=== PATIENT | female | born 1985 | race Caucasian/White ===

== ENCOUNTER 2022-01-13 14:11 | Emergency (ER) | payer BC, SELFPAY | END 2022-01-13 15:07 | disposition left against medical advice (07) | LOC: ED 15:05 | PROVIDERS: Emergency Provider Family Medicine; PCP Family Medicine | DX: Z53.21 Procedure and treatment not carried out due to patient leaving prior to being seen by health care provider (principal) ==

== ENCOUNTER 2022-01-19 13:42 | Emergency (ER) | payer BC, SELFPAY ==
[2022-01-19 13:50] VITALS: BP 122/76; PULSE 93; RESP 20; TEMP 36.5; O2SAT 97; BMI 26.2
--- NOTE | 2022-01-19 14:02 | CRLHL7_ITS ---
For Patients: As a result of the Cures Act, medical imaging exams and procedure reports are released immediately into your electronic medical record. You may view this report before your referring provider. If you have questions, please contact your health care provider. HISTORY: Pain after injury. COMPARISON: None available. FINDINGS: The left foot is examined with AP, lateral, and oblique views. There is no sign of fracture or dislocation. The soft tissues are normal in appearance without sign of radio-opaque foreign body. There is minimal hallux valgus angulation. There are mild hammertoe deformities of the 2nd through 4th toes. No degenerative changes are seen. IMPRESSION: No sign of acute osseous injury. Minor degenerative changes as described above. Dictated by Dion Jules MD @ 01/19/2022 3:02:16 PM (Electronically Signed)
--- NOTE | 2022-01-19 14:03 | ED.GENADULT ---
HPI - General Adult General Date Seen: 01/19/22 Chief complaint: Extremity Pain/Injury, Lower Stated complaint: Foot Injury Time Seen by Provider: 01/19/22 13:45 Source: patient History of Present Illness HPI narrative: Patient is a 36-year-old woman who was switched bring a little bit ago, she said she had just finished, was sitting on the bed, and slipped, spraining her foot in the process. Her foot just tucked underneath her and hyper plantar flexed. She has pain across the top of her foot near the MTP joints and then also across the top of her foot along the 1st metatarsal. She has been walking on it, putting most for weight on the heel. She tried to put her work shoes on and said she could not put her shoe on so she wanted to get it checked to make sure she had not broken anything. She has noted a little bruising, no significant swelling. Pain is moderate, worse when she tries to bear weight. She has not taken anything for pain. Pain does not radiate. No numbness or loss of function. Related Data Home Medications Medication Instructions Recorded Confirmed aripiprazole 30 mg tablet 30 mg PO DAILY 01/19/22 01/19/22 clonazepam 1 mg tablet 1 mg PO DAILY PRN 01/19/22 01/19/22 dextroamphetamine-amphetamine 20 20 mg PO DAILY 01/19/22 01/19/22 mg tablet dextroamphetamine-amphetamine 20 20 mg PO DAILY 01/19/22 01/19/22 mg tablet dextroamphetamine-amphetamine ER 20 mg PO DAILY 01/19/22 01/19/22 10 mg 24hr capsule,extend release doxazosin 1 mg tablet mg PO PRN 01/19/22 lurasidone 40 mg tablet (Latuda) 40 mg PO DAILY 01/19/22 01/19/22 olanzapine 2.5 mg tablet 0.5 mg PO PRN 01/19/22 01/19/22 trazodone 50 mg tablet 50 mg PO DAILY PRN 01/19/22 01/19/22 venlafaxine 150 mg 150 mg PO DAILY 01/19/22 01/19/22 capsule,extended release 24 hr venlafaxine 37.5 mg 37.5 mg PO DAILY 01/19/22 01/19/22 capsule,extended release 24 hr Previous Rx's Medication Instructions Recorded venlafaxine 75 mg capsule,extended 75 mg PO BID #60 cap 12/28/21 release 24 hr Allergies Allergy/AdvReac Type Severity Reaction Status Date / Time No Known Drug Allergies Allergy Verified 01/19/22 13:59 Review of Systems Status of ROS: Reports: 6 or more systems reviewed and unremarkable except as noted in History and below [facility] Social History Smoking Status: Current every day smoker What tobacco products do you use: cigarettes Smoking packs per day: 1 Smoking cigarettes per day: 20.0 Do you use any of these nicotine containing products: Vaping Products Second hand tobacco smoke exposure: Yes How often do you have a drink containing alcohol: never How often do you have six or more drinks on one occasion: Never AUDIT-C Alcohol total score: 0 Non-prescribed substance use: marijuana (any form) service: No Exam Narrative: Exam Narrative: Vital signs reviewed In general, alert, nontoxic woman. Extremities: Examination of the left foot shows some bruising by the MTP joints. No significant swelling. Tenderness in this area. She has some tenderness diffusely across the top of her foot. Dorsalis pedis pulse is intact. No tenderness of the ankle or Achilles. No tenderness of the base of the 5th metatarsal. Distal CMS is normal. Skin: Warm dry well perfused. Neurologic: Alert, conversant. Moves all extremities. Const: Vital Signs, click to edit/add: Vital Signs - 24 hr 01/19/22 13:50 Temperature 97.7 F Pulse Rate [Left P ulse Oximeter] 93 Respiratory Rate 20 Blood Pressure [Ri ght Upper Arm] 122/76 Pulse Oximetry 97 Documenting provider has reviewed patient's vital signs: yes Course Course Hospital Course: X-rays of the left foot by my review are negative. Final radiology report is likewise negative. Discussed that this will likely heal with conservative measures, ice, NSAIDs, elevation. 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 If she is not improving over the next 1-2 weeks would recommend follow up with primary care. Vital Signs Vital signs: Initial Vital Signs Temperature 97.7 F 01/19/22 13:50 Temperature Source Temporal Artery Scan 01/19/22 13:50 Pulse Rate 93 01/19/22 13:50 Respiratory Rate 20 01/19/22 13:50 Blood Pressure 122/76 01/19/22 13:50 Blood Pressure Mean 91 01/19/22 13:50 Blood Pressure Position Sitting 01/19/22 13:50 Pulse Oximetry 97 01/19/22 13:50 Oxygen Delivery Method 01/19/22 13:50 Vital Signs Temperature 97.7 F 01/19/22 13:50 Pulse Rate 93 01/19/22 13:50 Respiratory Rate 20 01/19/22 13:50 Blood Pressure 122/76 01/19/22 13:50 Pulse Oximetry 97 01/19/22 13:50 Temperature 97.7 F 01/19/22 13:50 Pulse Rate 93 01/19/22 13:50 Respiratory Rate 20 01/19/22 13:50 Blood Pressure 122/76 01/19/22 13:50 Pulse Oximetry 97 01/19/22 13:50 Discharge Plan Discharge Clinical Impression: Sprain of foot, left Patient Disposition: Home, Self-Care Condition: Stable Instructions: Foot Sprain (ED) Additional Instructions: Ibuprofen or Tylenol as needed. Ice, elevate as able. Postop shoe until pain is improved. Symptoms will likely improve with these conservative measures over the next couple of weeks, if not, follow up with her primary doctor. Prescriptions: No Action Latuda 40 mg tablet 40 mg PO DAILY 0RF Rx Instructions: must administer with food (at least 350 calories) clonazepam 1 mg tablet 1 mg PO DAILY PRN0RF Label Comments: TAKE 1 & 1/2 TABLET BY MOUTH ONCE A DAY NEEDED dextroamphetamine-amphetamine 20 mg tablet 20 mg PO DAILY 0RF dextroamphetamine-amphetamine 20 mg tablet 20 mg PO DAILY 0RF Label Comments: TAKE 1 TABLET BY MOUTH EVERY DAY aripiprazole 30 mg tablet 30 mg PO DAILY 0RF Label Comments: TAKE 1 TABLET BY MOUTH EVERY DAY dextroamphetamine-amphetamine 10 mg capsule,extended release 24hr 20 mg PO DAILY 0RF Label Comments: TAKE 1 CAPSULE BY MOUTH EVERY DAY doxazosin 1 mg tablet PO PRN 0RF Label Comments: TAKE 1/2 TABLET BY MOUTH EVERY DAY AT BEDTIME olanzapine 2.5 mg tablet 0.5 mg PO PRN 0RF Label Comments: TAKE 1 TABLET BY MOUTH ONCE A DAY NEEDED FOR SEVERE AGITATION/ANXIETY. trazodone 50 mg tablet 50 mg PO DAILY PRN0RF Label Comments: TAKE 1/2 TABLET BY MOUTH EVERY DAY AT BEDTIME venlafaxine 150 mg capsule,extended release 24hr 150 mg PO DAILY 0RF Label Comments: TAKE 1 CAPSULE BY MOUTH ONCE A DAY IN ADDITION TO 37.5 MG FOR A TOTAL DAILY DOSE OF 187.5 MG venlafaxine 37.5 mg capsule,extended release 24hr 37.5 mg PO DAILY 0RF Label Comments: TAKE 1 CAPSULE BY MOUTH ONCE A DAY IN ADDITION TO 150 MG DOSE FOR A TOTAL DAILY DOSE OF 187.5 MG. venlafaxine 75 mg capsule,extended release 24hr 75 mg PO BID Qty: 60 0RF Rx Instructions: Medication: Venlafaxine HCL ER Dose: 75mg cap Directions: Take 1 capsule by mouth twice a day Follow Up/Referrals: Gonzalez Keller MD [Primary Care Provider] - Stand Alone [facility]: [facility] Info Instructions
== END 2022-01-19 15:16 | disposition home or self-care (01) ==
PROVIDERS: Emergency Provider Emergency Medicine; PCP Family Medicine
DX: S93.602A Unspecified sprain of left foot, initial encounter (principal); X50.1XXA Overexertion from prolonged static or awkward postures, initial encounter
CPT/HCPCS: 73630; 99283

== ENCOUNTER 2022-09-23 16:20 | Emergency (ER) | payer BC, SELFPAY ==
[2022-09-23 16:37] VITALS: BP 135/98; PULSE 85; RESP 20; TEMP 37.3; O2SAT 98; BMI 28.2
[2022-09-23 17:33] LABS: Appearance Urine Cloudy (Clear); Bilirubin Urine Negative (Negative); Blood Urine Trace-intact (Negative); Color Urine Yellow (Yellow); Glucose Urine Negative (Negative); Ketones Urine Negative (Negative); Leukocyte Esterase Urine Trace (Negative); Nitrite Urine Negative (Negative); Protein Urine Negative (Negative); Specific Gravity Urine 1.015 (1.000-1.030); Urobilinogen Urine 0.2 (0.2-1.0); pH Urine 5.5 (5.0-8.5)
[2022-09-23] MEDS: ONDANSETRON 2 MG/ML inj 4 MG IVP (17:46)
[2022-09-23] MEDS: 0.9 % SODIUM CHLORIDE 1000 ml 1,000 ML IV (17:46)
[2022-09-23] MEDS: KETOROLAC 30 MG/ML inj IVP (17:46)
[2022-09-23 17:53] LABS: Bacteria Urine Few; Squamous Epithelial Cell Urine Moderate (None-Few)
[2022-09-23 17:57] LABS: Basophils Absolute Auto 0.02 K/uL (0.00-0.30); Basophils Percent Auto 0.2 % (0.0-3.0); Eosinophils Absolute Auto 0.11 K/uL (0.00-0.50); Eosinophils Percent Auto 1.3 % (0.0-7.0); Hematocrit 40.5 % (33.0-51.0); Hemoglobin* 14.2 gm/dL (12.0-16.0); Immature Granulocytes Abs Auto 0.01 K/uL (0.00-0.30); Immature Granulocytes Pct Auto 0.1 %; Lymphocytes Absolute Auto 2.77 K/uL (0.90-2.90); Lymphocytes Percent Auto 31.8 % (20-44); Mean Corpuscular HGB Conc 35 gm/dL (32-36); Mean Corpuscular Hemoglobin 30 pg (26-34); Mean Corpuscular Volume 85 fL (80-100); Neutrophils Percent Auto 58.6 % (42.0-72.0); Platelet Count* 300 K/uL (140-440); RDW Coefficient of Variation % 12.2 % (11.5-15.5); Red Blood Count 4.75 m/uL (4.00-5.20); White Blood Count* 8.71 K/uL (4.50-11.00)
[2022-09-23 17:58] LABS: Slide Review Reflex No
[2022-09-23 18:13] LABS: Chloride* 105 mmol/L (96-114); Sodium* 139 mmol/L (135-149)
[2022-09-23 18:15] LABS: Creatinine* 0.5 mg/dL (0.5-1.5); Est. Creatinine Clearance* 151.26; Estimated Glomerular Filt Rate 125 ml/min
[2022-09-23 18:16] LABS: Blood Urea Nitrogen* 9 mg/dL (5-24); Carbon Dioxide* 26 mmol/L (20-32); Glucose* 99 mg/dL (60-115)
[2022-09-23 18:17] LABS: Calcium* 8.9 mg/dL (8.4-10.6)
[2022-09-23 18:19] LABS: C Reactive Protein* 0.6 mg/dL (0.5-1.0)
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
[2022-09-23 18:51] LABS: Magnesium* 2.1 mg/dL (1.5-2.6)
== END 2022-09-23 21:02 | disposition home or self-care (01) ==
PROVIDERS: Emergency Medicine Emergency Medical Services; Emergency Provider Family Medicine; PCP Family Medicine
DX: N30.90 Cystitis, unspecified without hematuria (principal); E87.6 Hypokalemia; F41.9 Anxiety disorder, unspecified
CPT/HCPCS: 36415; 80048; 81001; 83735; 85025; 86140; 87086; 96374; 96375; 99284; J1885; J2405; J7030

== ENCOUNTER 2022-11-04 08:34 | Emergency (ER) | payer OTHER, BC, SELFPAY ==
[2022-11-04 08:46] VITALS: BP 143/80; PULSE 110; RESP 20; TEMP 36.8; O2SAT 96
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
[2022-11-04 09:09] LABS: Appearance Urine Clear (Clear); Bilirubin Urine Negative (Negative); Blood Urine Trace-intact (Negative); Color Urine Yellow (Yellow); Glucose Urine Negative (Negative); Ketones Urine Trace (Negative); Leukocyte Esterase Urine 1+ (Negative); Nitrite Urine Negative (Negative); Protein Urine 1+ (Negative)
[2022-11-04 09:11] LABS: Ur HCG Qualitative* Negative (Negative)
[2022-11-04] MEDS: ONDANSETRON 2 MG/ML inj 4 MG IVP ×2 (09:16→10:38)
[2022-11-04] MEDS: 0.9 % SODIUM CHLORIDE 1000 ml 1,000 ML 500 ML IV (09:17)
[2022-11-04] MEDS: KETOROLAC 15 MG/ML inj IVP ×2 (09:17→11:44)
[2022-11-04 09:18] LABS: Mucus Urine Few; Squamous Epithelial Cell Urine Few (None-Few); WBC Clumps Urine Few; WBC Urine 25-50 (0-5)
[2022-11-04 09:22] LABS: Lactate* 1.5 mmol/L (0.5-1.9)
[2022-11-04 09:24] LABS: Basophils Percent Auto 0.2 % (0.0-3.0); Eosinophils Percent Auto 0.1 % (0.0-7.0); Hemoglobin* 13.5 gm/dL (12.0-16.0); Immature Granulocytes Pct Auto 0.2 %; Lymphocytes Percent Auto 6.3 % (20-44); Mean Corpuscular HGB Conc 35 gm/dL (32-36); Mean Corpuscular Hemoglobin 30 pg (26-34); Mean Corpuscular Volume 87 fL (80-100); Monocytes Percent Auto 7.8 % (0.0-11.0); Neutrophils Percent Auto 85.4 % (42.0-72.0); Platelet Count* 279 K/uL (140-440); RDW Coefficient of Variation % 12.2 % (11.5-15.5); Red Blood Count 4.47 m/uL (4.00-5.20); White Blood Count* 15.56 K/uL (4.50-11.00)
[2022-11-04 09:26] LABS: Slide Review Reflex No
--- NOTE | 2022-11-04 09:30 | CRLHL7_ITS ---
For Patients: As a result of the Century Cures Act, medical imaging exams and procedure reports are released immediately into your electronic medical record. You may view this report before your referring provider. If you have questions, please contact your health care provider. INDICATION: RLQ PAIN UP TO RIBS TECHNIQUE: CT abdomen and pelvis with 90 cc Isovue 370 IV contrast. COMPARISON: CT abdomen pelvis July 18, 2017 FINDINGS: Hepatomegaly and hepatic steatosis. Gallbladder and biliary tree are normal. The spleen, adrenal glands and pancreas are within normal limits. Heterogenous enhancement/delayed nephrogram on the right. There is minimal right hydronephrosis with periureteral and perinephric inflammation along with enhancement of the ureteral wall. There is bladder wall thickening. No evidence of nephrolithiasis. Subcentimeter hyperdensity lower pole right kidney too small to characterize but likely represents a cyst. No evidence of bowel obstruction or inflammation. Unremarkable appendix. No significant free fluid and no free air. IUD is noted in place. The lower chest is unremarkable. IMPRESSION: Heterogenous enhancement/delayed nephrogram on the right. There is minimal right hydronephrosis with periureteral and perinephric inflammation along with enhancement of the ureteral wall. There is bladder wall thickening. No evidence of nephroureterolithiasis. Overall, findings are concerning for cystitis as well as ascending urinary tract infection involving the right ureter and kidney. Hepatomegaly and steatosis. Please note that all CT scans at this facility use dose modulation, iterative reconstruction, and/or weight-based dosing when appropriate to reduce radiation dose to as low as reasonably achievable. Dictated by Braden Gregorio MD @ 11/04/2022 10:31:01 AM (Electronically Signed)
[2022-11-04 09:38] LABS: Albumin* 3.9 g/dL (3.3-5.0); Chloride* 101 mmol/L (96-114); Potassium* 3.1 mmol/L (3.6-5.1); Sodium* 133 mmol/L (135-149)
[2022-11-04 09:40] LABS: Creatinine* 0.5 mg/dL (0.5-1.5); Estimated Glomerular Filt Rate 125 ml/min
[2022-11-04 09:41] LABS: Alanine Aminotransferase* 25 U/L (4-35); Alkaline Phosphatase* 76 U/L (40-150); Aspartate Amino Transferase* 26 U/L (12-35); Blood Urea Nitrogen* 5 mg/dL (5-24); Carbon Dioxide* 24 mmol/L (20-32); Glucose* 148 mg/dL (60-115); Total Protein* 6.7 g/dL (6.0-8.3)
[2022-11-04 09:42] LABS: Calcium* 8.5 mg/dL (8.4-10.6)
[2022-11-04 09:44] LABS: C Reactive Protein* 8.1 mg/dL (0.5-1.0)
[2022-11-04] MEDS: cefTRIAXone 2 GM in 0.9 % SODIUM CHLORIDE Mini-bag 100 ML IVPB (11:04)
[2022-11-04] MEDS: ACETAMINOPHEN 500 MG TABLET 1000 MG PO (11:45)
[2022-11-04 11:56] VITALS: BP 119/75; PULSE 83; RESP 18; O2SAT 96
[2022-11-04 12:29] VITALS: TEMP 37.4
--- NOTE | 2022-11-04 12:30 | PC.NURSE ---
Per Dr. Young, Dr. Jose is to be putting prescriptions in for Zofran,Toradol, and Cefdinir. Patient removed IV on her own. 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 Left ambulatory with .
== END 2022-11-04 12:33 | disposition home or self-care (01) ==
PROVIDERS: Emergency Provider Family Medicine; PCP Family Medicine
DX: N39.0 Urinary tract infection, site not specified (principal); N10 Acute pyelonephritis
CPT/HCPCS: 36415; 74177; 80053; 81001; 81025; 83605; 85025; 86140; 87086; 96365; 96375; 99284; 99285; A9270; J0696; J1885; J2405; J7030; Q9967

== ENCOUNTER 2022-12-19 16:03 | Outpatient (CLI) | payer OTHER, BC, SELFPAY | END 2022-12-19 16:04 | disposition home or self-care (01) | PROVIDERS: PCP Family Medicine; Visit Provider Family Medicine | DX: R10.2 Pelvic and perineal pain (principal); F31.9 Bipolar disorder, unspecified | CPT/HCPCS: 80076; 87086 ==

== ENCOUNTER 2022-12-23 16:30 | Outpatient (CLI) | payer OTHER, BC, SELFPAY ==
[2022-12-23 20:27] LABS: Chlamydia DNA Amplified* NOT DETECTED (No Detected); GC DNA Amplified* NOT DETECTED (No Detected)
== END 2022-12-23 16:31 | disposition home or self-care (01) ==
PROVIDERS: PCP Family Medicine; Visit Provider Physician Assistant
DX: Z11.3 Encounter for screening for infections with a predominantly sexual mode of transmission (principal)
CPT/HCPCS: 84702; 87491; 87591

== ENCOUNTER 2023-01-18 08:48 | Emergency (ER) | payer OTHER, BC, SELFPAY ==
[2023-01-18 08:54] VITALS: BP 136/97; PULSE 91; RESP 18; TEMP 35.9; O2SAT 98; BMI 29.0
--- NOTE | 2023-01-18 09:14 | ED_ITS ---
HPI - Weakness General Time Seen by Provider: 09:14 Date Seen: 01/18/23 Chief complaint: Weakness Stated complaint: weakness Time Seen by Provider: 01/18/23 09:11 Source: patient and RN notes reviewed Mode of arrival: ambulatory Limitations: no limitations History of Present Illness HPI Narrative: Patient is a 37-year-old female coming in tearful and anxious complaining of feeling weak. She states she has underlying bipolar disorder and has been taking her Effexor routinely. She notes sometimes when she misses her Effexor she will feel sweaty. She has been feeling sweaty and weak over the last week. She recently had her IUD pulled out. There was a condom that broke and maybe 1 episode of unprotected intercourse. She does think we should check a test which we will do. Her symptoms are making her feel anxious, she does not feel her underlying mental health is the problem here. She did have to work along shift yesterday which does not help. She states she stretch this morning and felt a pop on the inner left shoulder blade area, does have some pain there. She has not been coughing, no urinary symptoms. No fevers. Did have some diar tray this morning, 1 episode. No sore throat, no respiratory symptoms. I did see her earlier this winter, did have a UTI with ascending pyelonephritis. Reviewed with her that we really should check a urinalysis, she does agree. MD Complaint: generalized weakness Related Data Home Medications Medication Instructions Recorded Confirmed aripiprazole 30 mg tablet 30 mg PO DAILY 01/19/22 12/23/22 clonazepam 1 mg tablet 1 - 1.5 mg PO DAILY 06/12/22 12/23/22 trazodone 50 mg tablet 50 mg PO QHS PRN 08/06/22 12/23/22 dextroamphetamine-amphetamine 10 10 mg PO QDAY 12/19/22 12/23/22 mg tablet (Adderall) divalproex 500 mg tablet,delayed 500 mg PO .QD 12/19/22 12/23/22 release (Depakote) lisdexamfetamine 60 mg capsule 60 mg PO QAM 12/19/22 12/23/22 (Vyvanse) Previous Rx's Medication Instructions Recorded venlafaxine 75 mg capsule,extended 75 mg PO DAILY #30 caps 09/27/22 release 24 hr ondansetron 4 mg disintegrating 4 mg PO Q8H PRN nausea and 11/04/22 tablet vomiting #20 tabs cyclobenzaprine 10 mg tablet 10 mg PO TID PRN muscle spasm #30 12/19/22 tabs Allergies Allergy/AdvReac Type Severity Reaction Status Date / Time bupropion Allergy Mild bad dreams Verified 12/23/22 16:28 penicillin V Allergy Mild itching Verified 12/23/22 16:28 quetiapine Allergy Mild made her Verified 12/23/22 16:28 very sleepy Review of Systems Status of ROS: Reports: 10 or more systems reviewed and unremarkable except as noted in History and below [facility] Medical History Slow transit constipation ?K59.01 - Slow transit constipation (ICD-10) Severe pre-eclampsia ?O14.10 - Severe pre-eclampsia, unspecified trimester (ICD-10) Panic attacks ?F41.0 - Panic disorder [episodic paroxysmal anxiety] (ICD-10) Methamphetamine addiction ?F15.20 - Other stimulant dependence, uncomplicated (ICD-10) History of marijuana use ?F12.91 - Cannabis use, unspecified, in remission (ICD-10) History of alcohol dependence ?F10.21 - Alcohol dependence, in remission (ICD-10) Gastroenteritis ?K52.9 - Noninfective gastroenteritis and colitis, unspecified (ICD-10) Epigastric pain ?R10.13 - Epigastric pain (ICD-10) Drug abuse ?F19.10 - Other psychoactive substance abuse, uncomplicated (ICD-10) Dental abscess ?K04.7 - Periapical abscess without sinus (ICD-10) Cyst of ovary ?N83.209 - Unspecified ovarian cyst, unspecified side (ICD-10) Constipation due to opioid therapy ?K59.03 - Drug induced constipation (ICD-10) ?T40.2X5A - Adverse effect of other opioids, initial encounter (ICD-10) Chronic neck pain ?M54.2 - Cervicalgia (ICD-10) ?G89.29 - Other chronic pain (ICD-10) Antihypertensive agent overdose ?T46.5X1A - Poisoning by other antihypertensive drugs, accidental (unintentional), initial encounter (ICD-10) Alcoholic intoxication ?F10.929 - Alcohol use, unspecified with intoxication, unspecified (ICD-10) Surgical History History of D&C ?Z98.890 - Other specified postprocedural states (ICD-10) History of ankle surgery ?Z98.890 - Other specified postprocedural states (ICD-10) History of plastic surgery ?Z98.890 - Other specified postprocedural states (ICD-10) History of 3 sections (06/2015) ?Z98.891 - History of uterine scar from previous surgery (ICD-10) Family History Aunt Bipolar disorder Father Diabetes Cardiovascular disease High blood pressure FH: mental illness Mother High blood pressure Other Colorectal cancer Social History Narrative: Does not exercise 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 , 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, 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, used to be 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 Tobacco abuse- 15-20/day, 16 pack years Daily marijuana use Smoking Status: Heavy tobacco smoker What tobacco products do you use: cigarettes Smoking packs per day: 1 Smoking cigarettes per day: 20.0 Years smoked: 24 Smoking pack-years: 24.00 Do you use any of these nicotine containing products: E-Cigarettes and Vaping Products Second hand tobacco smoke exposure: No How often do you have a drink containing alcohol: never How often do you have six or more drinks on one occasion: Never AUDIT-C Alcohol total score: 0 Non-prescribed substance use: marijuana (any form) Little interest or pleasure in doing things: several days Feeling down, depressed, or hopeless: several days service: No Exam Const: Vital Signs, click to edit/add: Vital Signs - 24 hr 01/18/23 08:54 Temperature 96.6 F L Pulse Rate [Pulse Oximeter] 91 Respiratory Rate 18 Blood Pressure [Ri ght Upper Arm] 136/97 H Pulse Oximetry 98 Oxygen Delivery Me thod Room Air Documenting provider has reviewed patient's vital signs: yes Common normals: average body habitus, oriented x3, no limitations, healthy appearing, alert and well nourished General appearance: cooperative, comfortable, well developed and anxious (Is tearful when talking to her but pleasant) HENMT: Common normals: normocephalic, head/scalp atraumatic, hearing grossly normal bilaterally, external ears normal, external nose normal, moist oral mucous membranes, oropharynx normal, dentition normal and gingiva normal Head and scalp: normocephalic and atraumatic Face and sinus: normal facial exam Nose: external nose normal External ear: external ears normal Eye: Common normals: PERRL, EOMs intact bilaterally, conjunctivae normal and no scleral icterus Conjunctiva: conjunctiva(e) normal Pupil: PERRL Neck & C-Spine: Common normals: full ROM, no lymphadenopathy, supple, no meningeal signs, no JVD and thyroid normal Thyroid: thyroid normal Resp: Common normals: normal respiratory effort, no retractions, no use of accessory muscles and clear to auscultation bilaterally Auscultation: clear to auscultation bilaterally Cardio: Common normals: no JVD, regular rate, regular rhythm, S1 normal heart sound, S2 normal heart sound, no gallops, no clicks, no murmurs and no rub Rate: regular rate Rhythm: regular rhythm Heart sounds: S1 normal and S2 normal GI: Common normals: Normal to inspection, nondistended, normoactive bowel sounds present, soft to palpation, non-tender, no hepatosplenomegaly and no masses Palpation: soft and no hepatosplenomegaly Back & Pelvis: Common normals: straight leg raise negative bilaterally Other: Back inspected, no lesions rashes. No palpable abnormality in the thoracic spine area. Extremity: Common normals: normal to inspection, full ROM, no calf tenderness and no pedal edema Neuro: Cj Coma Scale: document GCS findings Cj coma scale eye opening: Spontaneous (4) [place] coma scale verbal response: Orientated (5) Cj coma scale motor response: Obey commands (6) [place] coma scale total score: 15 Common normals: oriented x3, CN's II-XII intact bilaterally, moves all extremities and gait normal Sensorium/orientation: alert Meningeal signs: no meningeal signs Course Course Hospital Course: We will establish an IV, give patient a L of fluids over 2 hours. She is having no nausea, no vomiting, maybe 1 diarrhea episode this morning. Continue to watch for diarrhea. Will get full complement of labs. She does review that she has been hypokalemic before and staff her supplement about 3 weeks ago. Will check full electrolytes and labs. Do think we should recheck a urinalysis, will also check for COVID, do portable chest x-ray. Will look for metabolic and infectious potential abnormalities. Patient denies mental health issues as being the underlying issue at this time. Reevaluation(s) Time of Reevaluation #1: 10:31 Reevaluation #1: Reviewed with Mikki that urinalysis is showing abnormalities. Looking back at her cultures, she has not grown anything but she had CT evidence of UTI and sending pyelonephritis when I saw her in the ER last. Thus, do think we need to treat her presumptively while we await culture results again. She should follow-up with her primary care provider. Antibiotics are going to be an issue. I have talked to our pharmacy, we are going to give her 48 hours worth of Keflex, if the urine culture grows anything or she starting to feel better, may need to extend this to a 5 day course of Keflex. She is on a restricted program, cannot get any prescriptions unless they are through her primary care provider or psychiatrist. It is a Friday, her primary care provider is not obviously in clinic. We have no way to get her antibiotics. Thus, are giving a 48 hour course of Keflex to start and see if she can follow-up in Friday in clinic. Potassium is mildly low, will be giving her 25 mg oral effervescent potassium here, she will restart her oral supplement at home. Vital Signs Vital signs: Initial Vital Signs Temperature 96.6 F L 01/18/23 08:54 Temperature Source Temporal Artery Scan 01/18/23 08:54 Pulse Rate 91 01/18/23 08:54 Respiratory Rate 18 01/18/23 08:54 Blood Pressure 136/97 H 01/18/23 08:54 Blood Pressure Mean 110 H 01/18/23 08:54 Blood Pressure Position Supine 01/18/23 08:54 Pulse Oximetry 98 01/18/23 08:54 Oxygen Delivery Method Room Air 01/18/23 08:54 Vital Signs Temperature 96.6 F L 01/18/23 08:54 Pulse Rate 91 01/18/23 08:54 Respiratory Rate 18 01/18/23 08:54 Blood Pressure 136/97 H 01/18/23 08:54 Pulse Oximetry 98 01/18/23 08:54 Oxygen Delivery Method Room Air 01/18/23 08:54 Temperature 96.6 F L 01/18/23 08:54 Pulse Rate 91 01/18/23 08:54 Respiratory Rate 18 01/18/23 08:54 Blood Pressure 136/97 H 01/18/23 08:54 Pulse Oximetry 98 01/18/23 08:54 Oxygen Delivery Method Room Air 01/18/23 08:54 MDM - Weakness Lab Data Attestation: I reviewed the patient's lab results. Labs: Lab Results 01/18/23 Range/Units 09:50 WBC 7.70 (4.50-11.00) K/uL RBC 5.45 H (4.00-5.20) m/uL Hgb 16.0 (12.0-16.0) gm/dL Hct 47.2 (33.0-51.0) % MCV 87 (80-100) fL MCH 29 (26-34) pg MCHC 34 (32-36) gm/dL RDW Coeff of [place] 12.6 (11.5-15.5) % Plt Count 292 (140-440) K/uL Neut % (Auto) 70.0 (42.0-72.0) % Lymph % (Auto) 22.2 (20-44) % [place] % (Auto) 6.2 (0.0-11.0) % Eos % (Auto) 1.4 (0.0-7.0) % Baso % (Auto) 0.1 (0.0-3.0) % Neut # (Auto) 5.38 (1.7-7.0) K/uL Lymph # (Auto) 1.71 (0.90-2.90) K/uL [place] # (Auto) 0.50 (0.00-0.90) K/UL Eos # (Auto) 0.11 (0.00-0.50) K/uL Baso # (Auto) 0.01 (0.00-0.30) K/uL Abs Immat Gran (auto) 0.01 (0.00-0.30) K/uL Imm/Tot Granulo (auto) 0.1 % Sodium 139 (135-149) mmol/L Potassium 3.3 L (3.6-5.1) mmol/L Chloride 100 (96-114) mmol/L Carbon Dioxide 30 (20-32) mmol/L BUN 5 (5-24) mg/dL Creatinine 0.6 (0.5-1.5) mg/dL Estimated Creat Clear 124.84 Estimated GFR 118 ml/min Glucose 98 (60-115) mg/dL Lactate 0.6 (0.5-1.9) mmol/L Calcium 9.4 (8.4-10.6) mg/dL Magnesium 2.1 (1.5-2.6) mg/dL Total Bilirubin 0.9 (0.1-1.5) mg/dL AST 30 (12-35) U/L ALT 33 (4-35) U/L Alkaline Phosphatase 82 (40-150) U/L C-Reactive Protein < 0.5 L (0.5-1.0) mg/dL Total Protein 8.0 (6.0-8.3) g/dL Albumin 4.7 (3.3-5.0) g/dL Urine Color Yellow (Yellow) Urine Appearance Cloudy A (Clear) Urine pH 6.0 (5.0-8.5) Ur Specific [place] 1.015 (1.000-1.030) Urine Protein Negative (Negative) Urine Glucose (UA) Negative (Negative) Urine Ketones Negative (Negative) Urine Blood 1+ A (Negative) Urine Nitrite Negative (Negative) Urine Bilirubin Negative (Negative) Urine Urobilinogen 0.2 (0.2-1.0) Ur Leukocyte Esterase 3+ A (Negative) Urine RBC 2-5 A (0-2) Urine WBC 25-50 A (0-5) Ur Squamous Epith Cells Few (None-Few) Urine Bacteria Moderate A (None) Urine HCG, Qual Negative (Negative) Imaging Data Chest x-ray: Attestation: I have reviewed the pertinent imaging results. My impression: I see no acute pathology on this portable chest x-ray. Radiologist's impression: Patient: LUIS RUIZ Facility:?[facility] Patient ID:?[id number] Site Patient ID:?[id number]. Site :?1985 Study:?XRay Chest PCXR-01/18/2023 9:43:07 AM Ordering Physician:Amara Salgado Final Report: INDICATION: Weakness. Sweats. TECHNIQUE: Portable AP image of the chest. COMPARISON: None. FINDINGS: Lungs and pleural spaces clear. Heart, mediastinum and pulmonary vessels normal. No significant osseous abnormality. IMPRESSION: Negative chest. Dictated by Vernon Harvey MD @ 01/18/2023 10:38:05 AM (Electronic Signature) Critical Care Time Critical Care Time Critical Care Time: No Discharge Plan Discharge Clinical Impression: Abnormal finding on urinalysis, Weakness, Hypokalemia Patient Disposition: Home, Self-Care Condition: Stable Instructions: Urinary Tract Infection in Women (ED), Potassium Content of Foods List (ED), Hypokalemia (ED) Additional Instructions: Need to follow-up with your primary care provider on Friday if possible, otherwise as soon as you are able to. Can review recurrent UTIs and potential evaluation and treatment of that. Discuss hypokalemia further. Do recommend you go back on year potassium supplement, try to eat potassium rich foods, review the handout given. If the urine culture does grow anything, the culture will direct antibiotic treatment and we can have you get this through your primary care provider on Friday if further antibiotics are needed. Activity Level: Activity as Tolerated Prescriptions: No Action trazodone 50 mg tablet 50 mg PO QHS PRN divalproex [Depakote] 500 mg tablet,delayed release (DR/EC) 500 mg PO .QD dextroamphetamine-amphetamine [Adderall] 10 mg tablet 10 mg PO QDAY Vyvanse 60 mg capsule 60 mg PO QAM cyclobenzaprine 10 mg tablet 10 mg PO TID PRN (Reason: muscle spasm) Qty: 30 0RF aripiprazole 30 mg tablet 30 mg PO DAILY Patient Comments: TAKE 1 TABLET BY MOUTH EVERY DAY clonazepam 1 mg tablet 1 - 1.5 mg PO DAILY Patient Comments: TAKE 1 & 1/2 TABLET BY MOUTH ONCE A DAY NEEDED venlafaxine 75 mg capsule,extended release 24hr 75 mg PO DAILY Qty: 30 0RF ondansetron 4 mg tablet,disintegrating 4 mg PO Q8H PRN (Reason: nausea and vomiting) Qty: 20 0RF Follow Up/Referrals: Gonzalez Keller MD [Primary Care Provider] - Stand Alone Forms: IMedExchange Info Instructions
--- NOTE | 2023-01-18 09:28 | CRLHL7_ITS ---
For Patients: As a result of the Century Cures Act, medical imaging exams and procedure reports are released immediately into your electronic medical record. You may view this report before your referring provider. If you have questions, please contact your health care provider. INDICATION: Weakness. Sweats. TECHNIQUE: Portable AP image of the chest. COMPARISON: None. FINDINGS: Lungs and pleural spaces clear. Heart, mediastinum and pulmonary vessels normal. No significant osseous abnormality. IMPRESSION: Negative chest. Dictated by Vernon Harvey MD @ 01/18/2023 10:38:05 AM (Electronically Signed)
[2023-01-18 10:00] LABS: Appearance Urine Cloudy (Clear); Bilirubin Urine Negative (Negative); Blood Urine 1+ (Negative); Color Urine Yellow (Yellow); Glucose Urine Negative (Negative); Ketones Urine Negative (Negative); Lactate* 0.6 mmol/L (0.5-1.9); Leukocyte Esterase Urine 3+ (Negative); Nitrite Urine Negative (Negative); Protein Urine Negative (Negative); Specific Gravity Urine 1.015 (1.000-1.030); Urobilinogen Urine 0.2 (0.2-1.0)
[2023-01-18 10:02] LABS: Basophils Percent Auto 0.1 % (0.0-3.0); Eosinophils Percent Auto 1.4 % (0.0-7.0); Hematocrit 47.2 % (33.0-51.0); Immature Granulocytes Pct Auto 0.1 %; Lymphocytes Percent Auto 22.2 % (20-44); Mean Corpuscular HGB Conc 34 gm/dL (32-36); Mean Corpuscular Hemoglobin 29 pg (26-34); Mean Corpuscular Volume 87 fL (80-100); Monocytes Percent Auto 6.2 % (0.0-11.0); Platelet Count* 292 K/uL (140-440); RDW Coefficient of Variation % 12.6 % (11.5-15.5); Red Blood Count 5.45 m/uL (4.00-5.20)
[2023-01-18 10:03] LABS: Basophils Absolute Auto 0.01 K/uL (0.00-0.30); Eosinophils Absolute Auto 0.11 K/uL (0.00-0.50); Immature Granulocytes Abs Auto 0.01 K/uL (0.00-0.30); Lymphocytes Absolute Auto 1.71 K/uL (0.90-2.90); Neutrophils Absolute Auto 5.38 K/uL (1.7-7.0)
[2023-01-18 10:05] LABS: Ur HCG Qualitative* Negative (Negative)
[2023-01-18 10:13] LABS: Bacteria Urine Moderate; Squamous Epithelial Cell Urine Few (None-Few); WBC Urine 25-50 (0-5)
[2023-01-18 10:15] LABS: Albumin* 4.7 g/dL (3.3-5.0); Chloride* 100 mmol/L (96-114)
[2023-01-18 10:16] LABS: Potassium* 3.3 mmol/L (3.6-5.1); Sodium* 139 mmol/L (135-149)
[2023-01-18 10:18] LABS: Creatinine* 0.6 mg/dL (0.5-1.5); Est. Creatinine Clearance* 124.84; Estimated Glomerular Filt Rate 118 ml/min; Slide Review Reflex No
[2023-01-18 10:19] LABS: Alanine Aminotransferase* 33 U/L (4-35); Alkaline Phosphatase* 82 U/L (40-150); Aspartate Amino Transferase* 30 U/L (12-35); Bilirubin Total* 0.9 mg/dL (0.1-1.5); Blood Urea Nitrogen* 5 mg/dL (5-24); Calcium* 9.4 mg/dL (8.4-10.6); Carbon Dioxide* 30 mmol/L (20-32); Glucose* 98 mg/dL (60-115)
[2023-01-18 10:20] LABS: Magnesium* 2.1 mg/dL (1.5-2.6)
[2023-01-18 10:26] LABS: C Reactive Protein* < 0.5 mg/dL (0.5-1.0)
[2023-01-18] MEDS: POTASSIUM BICARB 25 MEQ EFFERVESCENT TAB PO (10:36)
[2023-01-18] MEDS: 0.9 % SODIUM CHLORIDE 1000 ml 1,000 ML 500 ML IV (10:36)
[2023-01-18 13:44] LABS: SARS PCR* Negative SARS-CoV-2 (Negative)
--- NOTE | 2023-01-20 16:33 | ED.NURSE ---
called in script for Cipro 250 mg orally BID x [address] Fiore ordered and called the patient back to inform of the script called in and to pickling tank operator to start as soon as can.
== END 2023-01-18 10:58 | disposition home or self-care (01) ==
PROVIDERS: Emergency Provider Family Medicine; PCP Family Medicine
DX: R53.1 Weakness (principal); E87.6 Hypokalemia; R82.90 Unspecified abnormal findings in urine
CPT/HCPCS: 36415; 71045; 80053; 81001; 81025; 83605; 83735; 85025; 86140; 87086; 87186; 87635; 99284; 99285; A9270; J7030

== ENCOUNTER 2023-08-09 08:30 | Outpatient (CLI) | payer OTHER, SELFPAY ==
--- OUTSIDE RECORDS SUMMARY | 2023-08-11 08:17 | XMS_ITS | Clinical Summary ---
Author Name Unknown Organization [facility] Address [address] [place] [address] Care Team Providers Care Hull Drafter Name Role Phone Elsewhere, Pcp Primary Care Provider Unavailabl e Source Comments Patient records contain information from all sites at [facility]. For routine questions regarding patient records, call [phone] during business hours, M-F 8:00 AM - 5:00 PM Central Time. Record requests for emergency care only can be directed to [phone] at any time.[facility] Allergies Active Allergy Reactions Criticality Noted Date Comments Bupropion Hallucinations Low 12/23/2022 Bupropion Hcl Hallucinations 02/07/2014 Ketorolac Rash 07/13/2013 Penicillin Other (see comments) 05/01/2010 Quetiapine Other (see comments) 04/10/2010 Medications Medication Sig Dispensed Refills Start Date End Date Status traZODone (for_DESYREL) 150 mg tablet Take 1 tablet by mouth at bedtime. 0 02/04/2017 Active clonazePAM (KlonoPIN) 1 mg tablet Take 1 mg by mouth 2 (two) times a day. 0 Active cyclobenzaprine (FLEXERIL) 10 mg tablet Take 1 tablet (10 mg total) by mouth 3 (three) times a day as needed for muscle spasms. 60 tablet 1 03/16/2018 Active amphetamine-dextroamp hetamine (ADDERALL XR) 30 mg 24 hr capsule Take 30 mg by mouth daily. half 0 Active ARIPiprazole (ABILIFY) 30 mg tablet Take 30 mg by mouth daily. 0 Active potassium chloride (K-TAB) 20 mEq CR tablet Take 20 mEq by mouth 2 (two) times a day with meals. 0 Active gabapentin (NEURONTIN) 300 mg capsuleIndications:Pa in Low Back Unspecified Take 1 capsule (300 mg total) by mouth 3 (three) times a day. 90 capsule 11 05/08/2023 Active Active Problems Problem Noted Date Diagnosed Date Attention Deficit Disorder Inattentive 5 Other Intervertebral Disc Displacement Lumbar Re gion 11/25/2013 Abuse Tobacco Smoking 03/19/2011 Abuse Alcohol 02/23/2010 Bipolar Disorder 02/09/2010 Overview: Bipolar disorder NOS Anxiety Generalized Disorder 02/09/2010 Pain Low Back Unspecified 09/17/2007 Encounters Date Type Department Care Team Description 05/12/2023 Clinical Communication Department of [facility], [facility], in [place], [place] [address] [place] [address] Cassy Hernandez, PATRICIO, C.N.P., D.N.P. 05/12/2023 Patient Outreach Department of [facility], [facility], in [place], [place] [address] [place] [address] Irma Laird, R.Vasquez Care Coordination ([facility] CC Referral, Assess Eligibility) from Last 3 Months Immunizations Name Administration Dates Next Due DTP 07/04/1986,04/18/1986,02/10/1986 Influenza (IM) Preservative Free 04/22/2008 Influenza, Unspecified 04/29/2013 MMR 03/13/1987 OPV 04/18/1986,02/10/1986 Td (Adult), adsorbed 06/29/2001 Td, (Adult) Unspecified 04/04/2010,06/29/2001 Tdap 01/24/2016,04/29/2013,04/04/2010 Family History Medical History Relation Name Comments Coronary artery disease Father Hypertension Father Relation Name Status Comments Father Social History Tobacco Use Types Packs/Day Years Used Date Smoking Tobacco: Every Day Cigarettes 0.3 Smokeless Tobacco: Never Tobacco Cessation:Ready to Q uit: Not Asked; Counseling Given: Not Answered PHQ-2 Answer Date Recorded PHQ-2 Score 6 05/08/2023 Depression Answer Date Recor ded PHQ-9 Total Score (max 27) 27 05/08 Nutrition Answer Date Recorded Nutrition: EVOO Fat Source Unknown 08/30 Nutrition: Servings of Fruits/Vegetables per Day Not on file 08/30/2020 Dental Answer Date Recorded Dental: Regular Dentist Unknown 08/31/19 21 Sex and Gender Information Value Date Recorded Sex Assigned at Not on file Gender Identity Not on file Sexual Orientation Not on file Last Filed Vital Signs Vital Sign Reading Time Taken Comments Blood Pressure 129/88 05/08/2023 10:01 AM METAL CAN INSPECTOR Pulse 105 05/08/2023 10:01 AM METAL CAN INSPECTOR Temperature 36.6 ??C (97.9 ??F) 05/08/2023 1 0:01 AM METAL CAN INSPECTOR Respiratory Rate 16 02/04/2017 3:25 PM CDT Oxygen Saturation - - Inhaled Oxygen Concentration - - Weight 84.7 kg (186 lb 11.7 oz) 023 10:01 AM METAL CAN INSPECTOR Height 169 cm (5' 6.54) 02/04/2017 3:25 PM CDT Body Mass Index 29.66 02/04/2017 3:25 PM CDT Plan of Treatment Health Maintenance Due Date Last Done Comments Hepatitis B Vaccines (1 of 3 - 3-dose series) 1985 Hepatitis C Screening 1985 Lipid (Cholesterol) Screening 1985 Tobacco Cessation counseling 1985 COVID-19 Vaccine (#1) 06/16/1986 Pneumococcal vaccine (0-64 years) (1 of 2 - PCV) 12/16/1991 Glucose Test for Med Monitoring 02/19/2013 02/20/2012 Influenza Vaccine (#1) 2023 04/29/2013, 2007 Depression Screening (Annual PHQ-2) 06/30/2023 Cervical Cancer Screening 12/23/2025 12/23/2022, DTaP,Tdap,and Td Vaccines (9 - Td or Tdap) 01/23/2026 01/24/2016, 04/29/2013, 04/04/2010, Additional history exists HIV Screening Completed 10/22/2016 HPV Vaccines Aged Out No longer eligi ble based on patient's age to complete this topic Care Teams Hull Drafter Relationship Specialty Start Date End Date Elsewhere, Pcp PCP - General 09/28/21
--- OUTSIDE RECORDS SUMMARY | 2023-08-11 08:17 | XMS_ITS | Encounter Summary ---
Author Name Unknown Organization [facility] Address [address] [place] [address] Care Team Providers Care Creative Designer Name Role Phone Elsewhere, Pcp Primary Care Provider Unavailabl e Reason for Visit * Reason Comments Back Pain Anxiety * Appointment Request (Routine) - Closed Specialty Diagnoses / Procedures Referred By Rika mayorga Referred To Contact Family Medicine Referral ID Status Reason Start Date Expiration Date Visits Re quested Visits Authorized [id number] Closed 04/17/2023 04/16/2024 1 1 Encounter Details Date Type Department Care Team (Late st Contact Info) Description 05/08/2023 10:00 AM RETAIL BUSINESS MANAGER Office Visit Department of Family Medicine, [facility], in [place], [place] [address] [phone] Cassy Hernandez APRN, C.N.P., D.N.P. [address] [address] Bipolar Disorder (HCC) (Primary Dx); Anxiety Generalized Disorder; Dysuria; Pain Low Back Unspecified Social History Tobacco Use Types Packs/Day Years [...] on file Sexual Orientation Not on file documented as of this encounter Last Filed Vital Signs Vital Sign Reading Time Taken Comments Blood Pressure 129/88 05/08/2023 10:01 AM RETAIL BUSINESS MANAGER Pulse 105 05/08/2023 10:01 AM RETAIL BUSINESS MANAGER Temperature 36.6 ??C (97.9 ??F) 05/08/2023 1 0:01 AM RETAIL BUSINESS MANAGER Respiratory Rate - - Oxygen Saturation - - Inhaled Oxygen Concentration - - Weight 84.7 kg (186 lb 11.7 oz) 023 10:01 AM RETAIL BUSINESS MANAGER Height - - Body Mass Index 29.66 02/04/2017 3:25 PM CDT documented in this encounter Progress Notes * Cassy Hernandez, PATRICIO, C.N.P., D.N.P. - 05/08/2023 10:00 AM CST SUBJECTIVE CHIEF COMPLAINT / REASON FOR VISIT Back Pain and Anxiety HISTORY OF PRESENT ILLNESS Valentina Hwang is a teary-eyed 37 y.o. female who presents to the clinic today with her for Back Pain and Anxiety. This is my first time meeting this patient. Patient has a medical history of bipolar disorder, ADHD, generalized anxiety, tobacco abuse and alcohol abuse. Has been now sober from alcohol 7 years. Has been following with [facility] in [place] with Tatum Espinosa. She states that she has been on the [place] Restricted Recipient Program for the last four yearsdue to seeking assistance from multiple health providers, which she states isn't true, she was justlooking for help with her anxiety. States she was following strictly with Dr. Gonzalez Keller Family Medicine provider at [facility] and [facility]. On chart review, I can see she last saw Dr. Keller on 11/03/22 for pharyngitis, who placed a referral for her psychiatrist, Tatum Espinosa, as the referral needed to go through the Restricted Program, to obtain her psych medications from Tatum. Patient states that she has had a difficult time getting in touch with Tatum Espinosa as she says shewill frequently be on vacation or will not return her calls. Reviewing her medication list that I have on file, she states that she is currently on Adderall, ran out of this about 2-3 days ago. States that she ran out of her Abilify about a week ago, ran out of her Klonopin a week ago. Has Flexeriland takes as needed for back spasms. Has trazodone and uses this, but does not feel that this helps. Requesting Depakote, but states that she was not able to get this refilled as her liver labs were not good the last time this was checked. States she no longer takes oxycodone. She is also requesting Xanax, as she states that this is the only thing that helps her through these times bad anxiety.I am unable to determine exactly what other medications she has been on recently as her last visit to [facility] in clinic was about 6 months ago. It appears on PDMP review that she had seenTatum Espinosa on or around 04/09/2023, as the patient was given on this date clonazepam 1 mg tab, 45 tabs, 30 days worth (filled on 04/18), Adderall 30 mg 30 tabs, 30 days worth (filled on 04/09), clonazepam 2 mg, 6 tabs, 6 days worth (filled on 04/09). Patient states she takes the clonazepam 1 mg twice daily and that's not how it was filled. Patient states she feels frustrated and wants to see adifferent psychiatrist. Denies suicidal ideation at this time. States she wants to be a good example for her daughters. At this time she spends lots of time in her room in her bedroom, does not leavethe house, especially for the last month. Lastly, she wants medication for her back pain. Using Flexeril as needed. She is also requesting a workup for a possible UTI. There are no further concerns at this time. REVIEW OF SYSTEMS Musculoskeletal: Positive for pain or stiffness in the joints, back pain and muscle pain/stiffness. Psychiatric/Behavioral: Positive for sleep disturbance, little interest or pleasure in doing thingsover past two weeks, feeling down, depressed, or hopeless over past two weeks, not being able to stop or control worrying over past two weeks and feeling nervous, anxious, or on edge in past two weeks. The following systems were negative: Constitutional, Skin, Eyes, ENT, Respiratory, Cardiovascular, Gastrointestinal, Genitourinary, Hematologic, Neurological History Review The patient's allergies, current medications, problem list and medical history portions of the patient's history were reviewed and updated as appropriate. ALLERGIES/CONTRAINDICATIONS Allergies Allergen Reactions Bupropion Hcl Hallucinations Ketorolac Rash Penicillin Other (see comments) Quetiapine Other (see comments) Bupropion Hallucinations The patient's allergies were reviewed and updated to the best of my ability. CURRENT MEDICATIONS Current Outpatient Medications: amphetamine-dextroamphetamine (ADDERALL XR) 30 mg 24 hr capsule, Take 30 mg by mouth daily. half, Disp: , Rfl: ARIPiprazole (ABILIFY) 30 mg tablet, Take 30 mg by mouth daily., Disp: , Rfl: clonazePAM (KlonoPIN) 1 mg tablet, Take 1 mg by mouth 2 (two) times a day., Disp: , Rfl: cyclobenzaprine (FLEXERIL) 10 mg tablet, Take 1 tablet (10 mg total) by mouth 3 (three) times a dayas needed for muscle spasms., Disp: 60 tablet, Rfl: 1 potassium chloride (K-TAB) 20 mEq CR tablet, Take 20 mEq by mouth 2 (two) times a day with meals., Disp: , Rfl: traZODone (for_DESYREL) 150 mg tablet, Take 1 tablet by mouth at bedtime., Disp: , Rfl: gabapentin (NEURONTIN) 300 mg capsule, Take 1 capsule (300 mg total) by mouth 3 (three) times a day., Disp: 90 capsule, Rfl: 11 The patient's medications were reviewed and updated to the best of my ability. OBJECTIVE VITAL SIGNS Vitals: 05/08/23 1001 BP: 129/88 Pulse: 105 Temp: 36.6 ??C PHYSICAL EXAMINATION General: Teary-eyed, anxious 37 y.o. female. Patient is cooperative during our visit today. Respiratory: Respirations are easy and unlabored. Cardiovascular: Regular rate and rhythm. Neuro: Alert and oriented x3, responds appropriately to questions and follows commands without difficulty. Skin: Warm, pink and dry. No rashes or lesions. Psych: Crying, anxious. Otherwise patient was dressed appropriately. Contributes to meaningful conversation. IMPRESSION/REPORT/PLAN: #1 Bipolar Disorder (HCC) #2 Anxiety Generalized Disorder Plan: We would a lengthy discussion regarding her psychiatric history and current medications. Discussed that I would like her to continue to work with Tatum Espinosa at [facility] in regard to her medication regimen. I attempted to call and contact Tatum Espinosa after today's visit. I left a voicemail on her phone requesting that she call me back so we can discuss this patient's current medication plan. I advised the patient that I would like her to have a visit as soon as possible withJulie. Did discuss that there are certainly other options for psychiatric providers, however, stressed that I would like her to attempt to maintain her relationship and care with Tatum Espinosa. Patient has crisis intervention response information and phone number at home. Denies suicidal ideation at this time. Patient is understanding of signs and symptoms that she should present to the emergencydepartment. Patient and both understood was in agreement with this plan. #3 Dysuria Plan: After our lengthy discussion, she declines wanting further workup for UTI at this time, as she wants to leave the clinic. I let her know that I would be happy to place orders for this if she were to change her mind. #4 Pain Low Back Unspecified Plan: Patient many years ago jumped out a window when she was manic and continues to have back painfrom this trauma. Agreeable to give her gabapentin 300 mg 3 times a day to take for pain. She has Flexeril that she can continue to use as needed. - gabapentin (NEURONTIN) 300 mg capsule; Take 1 capsule (300 mg total) by mouth 3 (three) times a day., Starting Sophia 05/08/2023, Normal The patient verbalized understanding and agreement of the plan of care. All questions were answeredtoday. The patient will contact the clinic with any questions, concerns or changes in condition. Aware of emergency department if they develop any worrisome symptoms, or have any immediate medical concerns. Estimated time spent with patient today and in chart review was 60 minutes. ADDENDUM 05/09/2023 Attempted to call patient - she did not answer and her voicemail is full. I had called patient to see if she has picked up her gabapentin for pain. Also wanted to discuss with her that she needs to schedule a visit with her Psychiatrist, Tatum Espinosa, at [facility] for her psychiatric medications, as discussed at her visit. She can do this by calling them and leaving a voice message or through her online account portal through [facility]. If she would like to change Psychiatrists, she will need to get this set up on her own. I also did leave a voicemail with [facility] to speak with Tatum to get an update on the plan of care for Valentina. Patient called back and spoke with nursing. She would like to enroll into the IBH program. I have determined Valentina Hwang is eligible for Collaborative Care Management (IBH). A memberof the care team will discuss details of this service with the patient: including cost sharing, only one provider can bill for the service, the patient can stop the service at any time, and documentation of patient consent. I will place the order today for [facility] IB program if that's what she desires, as I mentionedthat program as one of her options. I strongly advise her to get into her current Psychiatrist, Tatum Espinosa at [facility], now, so she can get her medications, as it will take a few months for her to get into someone new, whether that be [facility] or another psychiatrist at a different location. I will place the [facility] referral now so she can explore that option. Cassy Hernandez APRN, David.N.Camille., D.N.P. [place] BUSINESS MANAGER documented in this encounter Plan of Treatment Not on file documented as of this encounter Visit Diagnoses Diagnosis Bipolar Disorder (HCC)- Primary Anxiety Generalized Disorder Dysuria Pain Low Back Unspecified documented in this encounter Additional Health Concerns Assessment Noted Time PHQ-9 Depression Total Score: 27 023 9:52 AM RETAIL BUSINESS MANAGER documented as of this encounter Care Teams Creative Designer Relationship Specialty Start Date End Date Elsewhere, Pcp PCP - General 09/28/21 documented as of this encounter
--- OUTSIDE RECORDS SUMMARY | 2023-08-11 08:17 | XMS_ITS | Encounter Summary ---
Author Name Unknown Organization [facility] Address [address] [place] [address] Care Team Providers Care Streetcar Repairer Name Role Phone Elsewhere, Pcp Primary Care Provider Unavailabl e Encounter Details Date Type Department Care Team (Late st Contact Info) Description 05/12/2023 Clinical Communication Department of Family Medicine, [facility], in [place], [place] [address] [phone] Cassy Hernandez APRN, C.N.P., D.N.P. [address] [phone] Social History Tobacco Use Types Packs/Day Years Used Date Smoking Tobacco: Every Day Cigarettes 0.3 Smokeless Tobacco: Never PHQ-2 Answer Date Recorded PHQ-2 Score 6 [...] on file documented as of this encounter Plan of Treatment Not on file documented as of this encounter Visit Diagnoses Not on filedocumented in this encounter Additional Health Concerns Assessment Noted Time PHQ-9 Depression Total Score: 27 023 9:52 AM INBOUND CALL CENTER REPRESENTATIVE documented as of this encounter Care Teams Streetcar Repairer Relationship Specialty Start Date End Date Elsewhere, Pcp PCP - General 09/28/21 documented as of this encounter
--- OUTSIDE RECORDS SUMMARY | 2023-08-11 08:17 | XMS_ITS | Referral Summary ---
Author Name Unknown Organization [facility] Address [address] [place] [address] Care Team Providers Care Intelligence Manager Name Role Phone Elsewhere, Pcp Primary Care Provider Unavailabl e Source Comments Patient records contain information from all sites at [facility]. For routine questions regarding patient records, call [phone] during business hours, M-F 8:00 AM - 5:00 PM Central Time. Record requests for emergency care only can be directed to [phone] at any time.[facility] Encounters Date Type Department Care Team Description 05/12/2023 Clinical Communication Department of Family Medicine, [facility], in [place], [place] [address] [address] Cassy Hernandez, PATRICIO, C.N.P., D.N.P. 05/12/2023 Patient Outreach Department of [facility], [facility], in [place], [place] [address] [phone] Irma Laird, R.N. Care Coordination ([facility] CC Referral, Assess Eligibility) from Last 3 Months Allergies Active Allergy Reactions Criticality Noted Date [...] Disorder 02/09/2010 Pain Low Back Unspecified 09/17/2007 Immunizations Name Administration Dates Next Due DTP 07/04/1986,04/18/1986,02/10/1986 Influenza (IM) Preservative Free 04/22/2008 Influenza, Unspecified 04/29/2013 MMR 03/13/1987 OPV 04/18/1986,02/10/1986 Td (Adult), adsorbed 06/29/2001 Td, (Adult) Unspecified 04/04/2010,06/29/2001 Tdap 01/24/2016,04/29/2013,04/04/2010 Social History Tobacco Use Types Packs/Day Years [...] Comments Blood Pressure 129/88 05/08/2023 10:01 AM MANAGER LAN Pulse 105 05/08/2023 10:01 AM MANAGER LAN Temperature 36.6 ??C (97.9 ??F) 05/08/2023 1 0:01 AM MANAGER LAN Respiratory Rate 16 02/04/2017 3:25 PM CDT Oxygen Saturation - - Inhaled Oxygen Concentration - - Weight 84.7 kg (186 lb 11.7 oz) 023 10:01 AM MANAGER LAN Height 169 cm (5' 6.54) 02/04/2017 3:25 PM CDT Body Mass Index 29.66 02/04/2017 3:25 PM CDT Plan of Treatment Not on file Care Teams Intelligence Manager Relationship Specialty Start Date End Date Elsewhere, Pcp PCP - General 09/28/21
--- OUTSIDE RECORDS SUMMARY | 2023-08-11 08:17 | XMS_ITS | Encounter Summary ---
Author Name Unknown Organization [facility] Address [address] [place] [address] Care Team Providers Care Shredder Picker Name Role Phone Elsewhere, Pcp Primary Care Provider Unavailabl e Reason for Referral * Outpatient (Routine) - Authorized Specialty Diagnoses / Procedures Referred By Rika mayorga Referred To Contact Urology Diagnoses Urinary Tract Infection Site Not Specified Gonzalez Keller M.D. [address], [place] [address] [facility] Referral ID Status Reason Start Date Expiration Date V isits Requested Visits Authorized [id number] Authorized 01/22/2023 01/22/2024 1 1 Encounter Details Date Type Department Care Team (Late st Contact Info) Description 01/22/2023 [facility] [address] [place] [phone] Gonzalez Keller M.D. [address] [place] [phone] Urinary Tract Infection Site Not Specified (Primary Dx) Social History Tobacco Use Types Packs/Day Years Used Date Smoking Tobacco: Every Day Cigarettes 0.3 Smokeless Tobacco: Never Nutrition Answer Date Recorded Nutrition: EVOO Fat Source Unknown 08/30 Nutrition: Servings of Fruits/Vegetables per Day Not on file 08/30/2020 Dental Answer Date Recorded Dental: Regular Dentist Unknown 08/31/19 21 Sex and Gender Information Value Date Recorded Sex Assigned at Not on file Gender Identity Not on file Sexual Orientation Not on file documented as of this encounter Plan of Treatment Scheduled Referrals Name Type Priority Associated Diagnoses Orde r Schedule Urology Referral Outpatient Referral Routine Urinary Tract Infection Site Not Specified Expected: 01/22/2023 (Approximate), Expires: 04/24/2024 documented as of this encounter Visit Diagnoses Diagnosis Urinary Tract Infection Site Not Specified- Primary documented in this encounter Additional Health Concerns Assessment Noted Time PHQ-9 Depression Total Score: 18 017 11:49 AM CDT documented as of this encounter Care Teams Shredder Picker Relationship Specialty Start Date End Date Elsewhere, Pcp PCP - General 09/28/21 documented as of this encounter
--- OUTSIDE RECORDS SUMMARY | 2023-08-11 08:17 | XMS_ITS | Encounter Summary ---
Author Name Unknown Organization [facility] Address [address] [place] [address] Care Team Providers Care Elastic Attacher Coverstitch Name Role Phone Elsewhere, Pcp Primary Care Provider Unavailabl e Encounter Details Date Type Department Care Team (Late st Contact Info) Description 03/21/2023 Clinical Communication Department of Family Medicine, [facility], in [place], [place] [address] [place] [address] Elsewhere, Pcp Social History Tobacco Use Types Packs/Day Years [...] on file documented as of this encounter Miscellaneous Notes * Telephone Encounter - Ethan Brody R.N. - 04/10/2023 11:43 AM CDT SUBJECTIVE CHIEF COMPLAINT / REASON FOR CALL No chief complaint on file. Information Discussed Called patient back to pass on information that it is recommended she see provider Mary who works closely with Dr. Hurley. At 1st patient states she would not meet with her as she only trust Dr. Hurley and that she does not want to have to tell her life story to someone else. After talking with her more, patient states that she would schedule 1 appointment with her but that she can not do it right now because she is at work and the call was ended. PLAN Disposition/Recommendation: patient to schedule appointment and will call Information/Education: patient/caller able to teach back Caller agreeable to plan of care: yes The following references were used: nursing clinical judgement and provider [facility] * Telephone Encounter - Laney Mariscal R.N. - 04/08/2023 1:12 PM CDT SUBJECTIVE CHIEF COMPLAINT / REASON FOR CALL No chief complaint on file. PLAN The following information was provided: Reached out to patient as Dr. Waldo Cesar is out of the office until 04/10, wanted to make sure patient knew as she was expecting him back today. She states she is ok to wait until 04/10 for nursing to talk to him about an appointment. She states he has been her doctor for a long time and he is the only one she trusts. Information/Education: patient/caller able to teach back The following references were used: none * Telephone Encounter - Yahaira Ashraf R.N. - 03/24/2023 9:54 AM CDT SUBJECTIVE CHIEF COMPLAINT / REASON FOR CALL No chief complaint on file. Information Discussed Nursing contacted patient to gather more information about her back injury and mental health. Patient adamant about not seeing any other provider apart from Dr. Waldo Cesar. Patient stated that he is the only one who knows her part of the story and she trusts him. Nursing let patient know that Dr. Waldo Cesar is out until 04/08 and she is willing to wait. Patient has no self harm thoughts. PLAN Disposition/Recommendation: self-care is appropriate at this time, patient encouraged to call back with questions Information/Education: patient/caller able to teach back Caller agreeable to plan of care: yes The following references were used: nursing clinical judgement documented in this encounter Plan of Treatment Not on file documented as of this encounter Visit Diagnoses Not on filedocumented in this encounter Additional Health Concerns Assessment Noted Time PHQ-9 Depression Total Score: 18 017 11:49 AM CDT documented as of this encounter Care Teams Elastic Attacher Coverstitch Relationship Specialty Start Date End Date Elsewhere, Pcp PCP - General 09/28/21 documented as of this encounter
--- OUTSIDE RECORDS SUMMARY | 2023-08-11 08:17 | XMS_ITS | Encounter Summary ---
Author Name Unknown Organization [facility] Address [address] [place] [address] Care Team Providers Care Finisher Accordion Name Role Phone Elsewhere, Pcp Primary Care Provider Unavailabl e Reason for Referral * Behavioral Health (Routine) - Authorized Specialty Diagnoses / Procedures Referred By Rika mayorga Referred To Contact Psychiatry / Psychiatry and Psychology Diagnoses Bipolar Disorder (HCC) Etienne Hernandez APRN C.N.P., D.N.P. [address] [phone] [facility] Referral ID Status Reason Start Date Expiration Date Visits Requested Visits Authorized [id number] Authorized Specialty Services Required 3 05/20/2024 1 1 OR CYTOGENETIC TECHNOLOGIST Reason for Visit * Reason Onset Date Comments Referral Request 05/09/2023 [facility] Encounter Details Date Type Department Care Team (Latest Contact Info) Description 05/09/2023 Clinical Communication Department of Family Medicine, [facility], in [place], [place] [address] [place] [phone] Etienne Hernandez APRN, C.N.P., D.N.P. [address] [place] [phone] Referral Request ([facility]) Social History Tobacco Use Types Packs/Day Years [...] encounter Miscellaneous Notes * Telephone Encounter - Kika Clemons L.P.NKashmir - 05/21/2023 1:28 PM SENIOR CYTOGENETIC TECHNOLOGIST Attempted to contact patient with phone disconnected per [employer] message OR CYTOGENETIC TECHNOLOGIST * Addendum Note - Etienne Hernandez APRN C.N.P., D.N.P. - 05/21/2023 12:32 PM CSTAddended by: ETIENNE HERNANDEZ on: 05/21/2023 12:32 PM Modules accepted: Orders OR CYTOGENETIC TECHNOLOGIST * Telephone Encounter - Kika Clemons L.P.NKashmir - 05/12/2023 10:20 AM SENIOR CYTOGENETIC TECHNOLOGIST SUBJECTIVE CHIEF COMPLAINT / REASON FOR CALL No chief complaint on file. Information Discussed Patient contacted and stated yes I want the referral to [facility] and Yes I will only contact Tatum if I need medications until I can be seen in [facility]. Sharmin knows I will not see Tatum again because she lies to me PLAN Disposition/Recommendation: notified provider and awaiting recommendations Information/Education: patient/caller able to teach back Caller agreeable to plan of care: yes The following references were used: provider Sharmin Hernandez CNP and other per patient OR CYTOGENETIC TECHNOLOGIST * Telephone Encounter - Rocio Romero C.M.A. - 05/09/2023 11:28 AM SENIOR CYTOGENETIC TECHNOLOGIST SUBJECTIVE CHIEF COMPLAINT / REASON FOR CALL Patient returned provider call to clinic Information Discussed Patient called and stated she has picked up her Gabapentin from the pharmacy. Patient also stated I do not want to work with Tatum Espinosa and I told this to Etienne at my appointment yesterday. Etienne told me I could work with psychiatry at [facility]. If Etienne lied to me, I will never trust her again. Went over office note from patient visit from 05/08/2023 and patient denied conversation aboutTatum Espinosa. Informed patient I would send Etienne a message letting her know patient's concerns. PLAN Disposition/Recommendation: Informed patient message would be sent to Etienne with her concerns Information/Education: patient/caller able to teach back Caller agreeable to plan of care: yes The following references were used: none OR CYTOGENETIC TECHNOLOGIST * Telephone Encounter - Etienne Hernandez APRN C.N.PKashmir, D.N.P. - 05/09/2023 11:06 AM CST Attempted to call patient - she did not answer and her voicemail is full. I had called patient to see if she has picked up her gabapentin for pain. Also wanted to discuss with her that she needs to schedule a visit with her Psychiatrist, Tatum Espinosa, at [facility] for her psychiatric medications, as discussed at her visit. She can do this by calling them and leaving a voice message or through her online account portal through [facility]. If she would like to change Psychiatrists, she will need to get this set up on her own. I also did leave a voicemail with [facility] to speak with Tatum to get an update on the plan of care for Valentina. Etienne Hernandez APRN, David.N.P., D.N.P. OR CYTOGENETIC TECHNOLOGIST documented in this encounter Plan of Treatment Scheduled Referrals Name Type Priority Associated Diagnoses Order Schedule Psychiatry and Psychology - General consult (clinic) Outpatient Referral Routine Bipolar Disorder (HCC) Expected: 05/21/2023 (Approximate), Expires: 05/21/2024 documented as of this encounter Visit Diagnoses Diagnosis Bipolar Disorder (HCC)- Primary documented in this encounter Additional Health Concerns Assessment Noted Time PHQ-9 Depression Total Score: 27 023 9:52 AM SENIOR CYTOGENETIC TECHNOLOGIST documented as of this encounter Care Teams Finisher Accordion Relationship Specialty Start Date End Date Elsewhere, Pcp PCP - General 09/28/21 documented as of this encounter
--- OUTSIDE RECORDS SUMMARY | 2023-08-11 08:17 | XMS_ITS ---
Author Name Unknown Organization [facility] Address [address] [place] [address] Care Team Providers Care Music Theory Professor Name Role Phone Unavailable Unavailable Unavailable Surgery Details Not on file Complications Check Surgery Details section. Procedure Estimated Blood Loss Check Surgery Details section. Procedure Findings Check Surgery Details section. Procedure Specimens Taken Check Surgery Details section.
--- OUTSIDE RECORDS SUMMARY | 2023-08-11 08:17 | XMS_ITS | Clinical Summary ---
Author Name Unknown Organization [facility] Address [place], [place] [address] Care Team Providers Care Cigarette Catcher Name Role Phone Damien Hurley MD Primary Care Prov ider Allergies Active Allergy Reactions Criticality Noted Date Comments Penicillins *Unknown 05/06/2010 get itchy Quetiapine Fumarate *Unknown 05/06/2010 made me sick Ketorolac Itching 02/24/2014 Medications Medication Sig Dispensed Refills Start Date End Date Status albuterol HFA (PRO-AIR,VENTOLIN, PROVENTIL) 90 mcg/actuation inhalerIndications :Pain of right leg Inhale 1-2 Puffs by mouth every 4 hours if needed. 1 Inhaler 1 04/05/2015 Active oxyCODONE (ROXICODONE) 5 mg immediate release tabletIndications: Post-operative state Take 1 tablet by mouth every 4 hours if needed for Pain. 40 tablet 0 04/11/2015 Active acetaminophen (TYLENOL EXTRA STRENGTH) 500 mg tabletIndications: Lumbar herniated disc Take 2 tablets by mouth 3 times daily. Max acetaminophen dose: 4000mg in 24 hrs. 30 tablet 0 10/07/2015 Active lidocaine 5% (LIDODERM) 5 % patch Apply 1 patch to painful area of skin for up to 12 hours within a 24-hour period. 0 03/19/2016 Active medroxyPROGESTERon e acetate, contraceptive, (DEPO-PROVERA) 150 mg/mL injection Inject 150 mg intramuscular every 3 months. 0 03/19/2016 Active ibuprofen (ADVIL; MOTRIN) 600 mg tabletIndications: Abdominal muscle strain, initial encounter Take 1 tablet by mouth 4 times daily if needed. Maximum of 3200 mg in 24 hours. 60 tablet 0 03/19/2016 Active traMADol (ULTRAM) 50 mg tabletIndications: Abdominal muscle strain, initial encounter Take 1 tablet by mouth every 6 hours if needed for Pain. 40 tablet 1 03/19/2016 Active oxyCODONE-acetamin ophen, 5-325 mg, (PERCOCET) 5-325 mg per tabletIndications: Cyst of left ovary Take 1 tablet by mouth every 4 hours if needed for Pain Max acetaminophen dose: 4000mg in 24 hrs. 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) 05/08/2010 Resolved Problems Problem Noted Date Diagnosed Date Resolved Date Metatarsal fracture 01/31/2010 03/16/20 15 Immunizations Name Administration Dates Next Due DTaP 07/04/1986,04/18/1986,02/10/1986 Influenza, IIV3 (Age >=3 years) 04/29/2013,04/22 MMR 03/13/1987 Polio Virus, Unspecified 04/18/1986,02/10/1986 Td (Age >=7 Years) 04/04/2010,06/29/2001 Tdap 01/24/2016,04/29/2013 Family History Medical History Relation Name Comments Alcohol/Drug Father Relation Name Status Comments Father 2006 Mother Alive Sister 1 Alive Sister 2 Alive Social History Tobacco Use Types Packs/Day Years Used Date Smoking Tobacco: Every Day Cigarettes 0.3 10 Smokeless Tobacco: Never Tobacco Cessation:Counseling Given: Yes Comments:3-4 cig Alcohol Use Standard Drinks/Week Comments Yes 0 (1 standard drink = 0.6 oz pur e alcohol) Sex and Gender Information Value Date Recorded Sex Assigned at Not on file Gender Identity Not on file Sexual Orientation Not on file Obstetrics History Para Term AB IAB SAB Ectopic Multiple Livin g Live Births 7 1 1 4 4 3 1 Date Outcome GA Total Labor Labor/2nd/3rd Weight Sex Delivery Anes PTL Teresa A1 A5 Name Cl in SAB SAB F Comments:System Genera karlo. Please review and update details. 2003 SAB SPONTANE O US 01/30 35w 0d M N Madelin ng Isaiah Comments:Severe pre-ec lampsia 2011 SAB Last Filed Vital Signs Vital Sign Reading Time Taken Comments Blood Pressure 130/93 02/07/2018 5:49 PM CDT Pulse 107 02/07/2018 5:49 PM CDT Temperature 36.9 ??C (98.4 ??F) 02/07/2018 5:49 PM CD T Respiratory Rate 22 02/07/2018 5:49 PM CDT Oxygen Saturation 94% 02/07/2018 5:49 PM CDT Inhaled Oxygen Concentration - - Weight 93.6 kg (206 lb 4.8 oz) 02/07/2018 5:49 P M CDT Height 170.2 cm (5' 7) 08/12/2017 2:37 PM TACTICAL AIR DEFENSE CONTROLLER Body Mass Index 32.31 08/12/2017 2:37 PM TACTICAL AIR DEFENSE CONTROLLER Plan of Treatment Health Maintenance Due Date Last Done Comments COVID-19 vaccine series (#1) 06/16/1986 Depression screening for age 12+ 1997 HIV for age 15-65 2000 BMI (ht and wt on same day) for age 18+ 12/16/2003 Hepatitis C screening for age 18-79 12/16/2003 Influenza for age 9-49 02/28/2023 04/29/2013, 2007 Pap test for age 21-65 12/23/2025 , 12/23/2022, 03/11/2016, Additional history exists Tetanus booster 01/23/2026 01/24/2016, 04/01, 04/04/2010, Additional history exists Tdap Completed 01/24/2016, 04/29/2013 Pneumococcal series for age 6-64 Aged Out No longer eligible based on patient's age to complete this topic Advance Directives Latest Code Status on File Code Status Date Activated Date Inactivated Comments Full Code 10/07/2015 12:29 PM 10/07/2015 5:30 PM Question Answer Comments Code Status Discussion: Discussed Code Status History Code Status Date Activated Date Inactivated Comments Full Code 05/07/2010 7:53 PM 05/11/2010 2:00 PM Care Teams Cigarette Catcher Relationship Specialty Start Date End Date Damien Hurley MD PCP - General Family Practice 02/07/18
--- OUTSIDE RECORDS SUMMARY | 2023-08-11 08:17 | XMS_ITS | Encounter Summary ---
Author Name Unknown Organization [facility] Address [address] [place] [address] Care Team Providers Care Coater Helper Name Role Phone Elsewhere, Pcp Primary Care Provider Unavailabl e Reason for Visit * Reason Comments Care Coordination [facility] Referral, Ass ess Eligibility Encounter Details Date Type Department Care Team (Latest Contact Info) Description 05/12/2023 Patient Outreach Department of Family Medicine, [facility], in [place], [place] [address] [phone] Irma Laird R.N. [address] [place] [phone] Care Coordination ([facility] Referral, Assess Eligibility) Social History Tobacco Use Types Packs/Day Years [...] on file documented as of this encounter Progress Notes * Irma Laird, R.N. - 05/14/2023 1:43 PM CST Images from the original note were not included. SUBJECTIVE REASON FOR CHART REVIEW Referral to Integrated Behavioral Health (IB) Adult Care Coordination program Valentina Hwang is a 37 y.o. female referred to [facility] Care Coordination for potential enrollment. Referral Source: Care Team - Dr. Hernandez, NAVAL ARCHITECT SPECIALIST, ROLL TABLE OPERATOR, DNP Referral Information: See 05/08/2023 office visit ASSESSMENT/PLAN Inclusion Criteria: 07/30/2016 3:11 PM 10/22/2016 11:49 AM 05/08/2023 9:52 AM PHQ9 Score PHQ-9 Total Score (max 27) 10 18 27 Patient Active Problem List Diagnosis Bipolar Disorder (HCC) Abuse Alcohol Attention Deficit Disorder Inattentive Anxiety Generalized Disorder Other Intervertebral Disc Displacement Lumbar Region Pain Low Back Unspecified Abuse Tobacco Smoking Exclusion Criteria: Yes, bipolar disorder. Patient does not meet program criteria. Plan: Attempt to reach patient to share mental health resources, including psychiatry options. GEMENT ADVISOR documented in this encounter Plan of Treatment Not on file documented as of this encounter Visit Diagnoses Not on filedocumented in this encounter Additional Health Concerns Assessment Noted Time PHQ-9 Depression Total Score: 27 023 9:52 AM MANAGEMENT ADVISOR documented as of this encounter Care Teams Coater Helper Relationship Specialty Start Date End Date Elsewhere, Pcp PCP - General 09/28/21 documented as of this encounter
== END 2023-08-09 08:31 | disposition home or self-care (01) ==
LOC: NFLDREF 08-11 08:11
PROVIDERS: PCP Family Medicine; Referring Provider Family Medicine; Visit Provider Physician Assistant
DX: R30.0 Dysuria (principal); N39.0 Urinary tract infection, site not specified; R39.9 Unspecified symptoms and signs involving the genitourinary system; N30.01 Acute cystitis with hematuria
CPT/HCPCS: 87086; 87186